=== PATIENT | female | born 1980 | race Two or more races ===

== ENCOUNTER 2019-10-08 12:07 | Inpatient (IN) | payer OTHER ==
[~2019-10-08] VITALS: Ht 162.6 cm; Wt 83.0 kg
[2019-10-08] MEDS ORDERED: METF-440 PO (14:21)
[2019-10-08] MEDS ORDERED: NORE0.353 PO (14:21)
[2019-10-08 14:45] VITALS: BP 119/86
--- NOTE | 2019-10-08 14:45 | NUR ---
RECEIVED PATIENT DIRECT ADMIT FROM [facility] VIA [facility] TRANSPORTED BY echo technologist. PATIENT IS A/OX4, ABLE TO MAKE NEEDS KNOWN, AMBULATORY, TRANSFERRED SELF FROM [facility] TO BED. DX OF CHOLECYSTITIS. ICELANDIC SPEAKING, UNDERSTANDS LITTLE CHILEAN. NOT IN ANY FORM OF DISTRESS. TOLERATING ROOM AIR SATTING 96%. NO SOB. DENIED ANY PAIN OR DISCOMFORT AT THIS MOMENT. IV ACCESS ON LEFT AC GUAGE 18 INTACT AND PATENT. REFUSED SKIN ASSESSMENT, PATIENT STATED THAT SHE DOESNT HAVE ANY WOUNDS. FAMILY AT BEDSIDE. BELONGINGS CHECKED BY CYDNEY GREEN. ORIENTED PATIENT TO ROOM, TAUGHT HOW TO USE THE CALL LIGHT AND INSTRUCTED TO CALL FOR ASSISTANCE. SAFETY MEASURES IN PLACE. BED IN LOW/LOCKED PSOITION, SIDERAILS UPX2, CALL LIGHT IN REACH. WILL CONTINUE TO MONIOTR ACCORDINGLY. PAGED BONIFACIO QUINTANA FOR ADMITTING ORDERS
--- NOTE | 2019-10-08 15:33 | NUR ---
[facility] SWAB COLLECTED, CALLED LAB FOR CARVER HAND
[2019-10-08] MEDS ORDERED: ONDANSETRON HCL/PF 4 MG/2 ML VIAL IVP PRN (16:30)
[2019-10-08] MEDS ORDERED: ZOLPIDEM TARTRATE 5 MG TABLET PO PRN (16:30)
[2019-10-08] MEDS ORDERED: MAGNESIUM HYDROXIDE 30 ML UDC PO PRN (16:30)
[2019-10-08] MEDS ORDERED: MAG HYDROX/AL HYDROX/SIMETH 30 ML UDC PO PRN (16:30)
[2019-10-08] MEDS ORDERED: Z GUARD REMEDY 2 OZ OINT TP PRN (16:30)
[2019-10-08] MEDS ORDERED: MORPHINE SULFATE INJ 2 MG/ML DISP.SYRIN IV PRN (16:30)
[2019-10-08] MEDS ORDERED: DEXTROSE 50%-WATER 50 ML DISP.SYRIN IV PRN (16:30)
[2019-10-08] MEDS: IV NS 0.9% 1,000 ML IV PRN (17:02)
[2019-10-08] MEDS: BLOOD SUGAR DIAGNOSTIC 1 EACH STRIP IN SCH ×2 (17:15→21:19)
--- NOTE | 2019-10-08 17:16 | NUR ---
RN NOTES BONIFACIO QUINTANA DNP AT BEDSIDE DISCUSSED POC TO PATIENT.
[2019-10-08 17:19] LABS: CALCIUM, SERUM 8.5 mg/dL (8.5-10.1); CREATININE 0.7 mg/dL (0.6-1.3); POTASSIUM 3.7 mmol/L (3.5-5.1)
[2019-10-08] MEDS: ZOSYN IVPB 3.375 G in IV D5W 50ml IV ONE ×2 (18:06→18:11)
--- NOTE | 2019-10-08 19:03 | NUR ---
RN CLOSING NOTES PATIENT IN STABLE CONDITION. ALL NEEDS ATTENDED AND PROVIDED. ALL DUE MEDICATION GIVEN ORDERED. KEPT PATIENT SAFE AND COMFORTABLE. BED IN LOW/LOCKED POSITION. SIDERAILS UPX2, CALL LIGHT IN REACH. ENDORSED TO NIGHT RN FOR RANGEL.
[2019-10-08 20:00] VITALS: BP 124/80
[2019-10-08] MEDS: INSULIN REGULAR, HUMAN 100 UNIT/ML 3 ML VIAL SQ PRN (21:20)
--- NOTE | 2019-10-08 21:20 | NUR ---
ms power press supervisor notes blood sugar checked done 81, no insuiln due at this time. no signs of hypo glycemia noted. will continue monitoring.
[2019-10-09] MEDS: PIPERACILLIN /TAZOBACTAM 3.375 G in IV D5W 100 ML IV SCH ×3 (00:43→15:00)
[2019-10-09] MEDS: BLOOD SUGAR DIAGNOSTIC 1 EACH STRIP IN SCH ×4 (05:46→22:56)
[2019-10-09] MEDS: INSULIN REGULAR, HUMAN 100 UNIT/ML 3 ML VIAL SQ PRN ×3 (05:50→17:04)
[2019-10-09 06:32] LABS: BASOPHILS % (AUTO) 0.4 % (0.0-2.0); EOSINOPHILS % (AUTO) 4.8 % (0.0-6.0); HEMATOCRIT 34 % (33-45); HEMOGLOBIN 11.2 g/dL (11.5-14.8); LYMPHOCYTES # (AUTO) 1.6 /CMM (0.8-4.8); LYMPHOCYTES % (AUTO) 26.2 % (20.0-44.0); MEAN CORPUSCULAR HGB CONC 33 g/dl (31.0-36.0); MEAN CORPUSCULAR VOLUME 85 fL (82-100); MONOCYTES # (AUTO) 0.4 /CMM (0.1-1.30); MONOCYTES % (AUTO) 5.9 % (2.0-12.0); NEUTROPHILS # (AUTO) 3.8 /CMM (1.8-8.9); NEUTROPHILS % (AUTO) 62.7 % (43.0-81.0); PLATELET COUNT (AUTO) 233 /CMM (150-450); RED BLOOD CELL COUNT(AUTO) 3.99 MIL/uL (4.0-5.2)
--- NOTE | 2019-10-09 06:52 | NUR ---
MS LANDCARE OFFICER CLOSING NOTES PT AWAKE AND ALERT WATCHING TV AT THIS TIME WITH IVF NS AT 75ML/HR STILL INFUSING ON HER LEFT AC. PATENT AND INTACT. DENIES ANY PAIN OR ANY DISCOMFORT. STABLE [place] THE NIGHT . BLOOD SUGAR CHECKED DONE 105, NO INSULIN DUE AT THIS TIME. NO SIGNS OF HYPO GLYCEMIA NOTED. PT SIGNED THE CONSENT FOR HIDA SCAN. WILL ENDORSE TO AM NURSE FOR CONTINUITY OF CARE. PLACE CALL LIGHT AT REACH.
[2019-10-09 07:00] LABS: ALBUMIN 3.2 g/dL (3.4-5.0); BILIRUBIN,TOTAL 0.4 mg/dL (0.2-1.0); CALCIUM, SERUM 8.6 mg/dL (8.5-10.1); CREATININE 0.7 mg/dL (0.6-1.3); MAGNESIUM 1.8 mg/dL (1.8-2.4); PHOSPHORUS 4.5 mg/dL (2.5-4.9); POTASSIUM 3.7 mmol/L (3.5-5.1); TOTAL PROTEIN, SERUM 6.6 g/dL (6.4-8.2)
--- NOTE | 2019-10-09 07:09 | NUR ---
RN OPENING NOTE PT WAS RECEIVED IN BED IN LOWEST AND LOCKED POSITION WITH SIDE RAILS UP X2, A/O X4 BREATHING EVEN AND UNLABORED AMHARIC SPEAKING, PT NOTED TO BE AMBULATORY, CURRENTLY NPO, AWAITING FOR HIDA SCAN, SAFETY PRECAUTIONS IN PLACE, CALL LIGHT IN REACH, WILL MONITOR ACCORDINGLY
[2019-10-09 08:00] VITALS: BP 128/85
[2019-10-09] MEDS: PANTOPRAZOLE 40 MG VIAL IV SCH (08:07)
--- NOTE | 2019-10-09 09:19 | NUR ---
RN NOTE PT TAKEN FOR HIDA SCAN AT THIS TIME, CONSENT SIGNED.
--- NOTE | 2019-10-09 10:57 | NUR ---
RN NOTE PT BROUGHT BACK FROM HIDA SCAN AT THIS TIME
--- NOTE | 2019-10-09 11:41 | NUR ---
RN NOTE PT BLOOD SUGAR NOTED TO BE 111 AT THIS TIME, NO INSULIN REQUIRED PER S/S, WILL CONTINUE TO MONITOR
--- NOTE | 2019-10-09 12:00 | NUR ---
RN NOTE WANT AD RECEIVER LUIS CASTRO INFORMED OF HIDA SCAN RESULTS BEING UNREMARKABLE AND PT WANTING TO EAT, ONLY ORDER RECEIVED WERE FOR STAT HEPATITIS PANEL AND HEP B SURFACE ANTIGEN. WILL IMPLEMENT AND CARRY OUT
[2019-10-09 15:19] LABS: BILIRUBIN,DIRECT 0.1 mg/dL (0.0-0.2); BILIRUBIN,TOTAL 0.4 mg/dL (0.2-1.0)
--- NOTE | 2019-10-09 15:39 | NUR ---
RN NOTE SIZE MAKER LUIS CASTRO INFORMED OF BILIRUBIN RESULTS, ORDER GIVEN TO START PT ON CLEARS FOR NOW, WILL IMPLEMENT AND CARRYOUT
[2019-10-09 16:00] VITALS: BP 144/90
--- NOTE | 2019-10-09 18:12 | NUR ---
RN CLOSING NOTE PT IN BED IN LOWEST AND LOCKED POSITION WITH SIDE RAILS UP X2, A/O X4 BREATHING EVEN AND UNLABOREWITH NO DISTRESS OR PAIN AT THIS TIME, CURRENTLY ON CLEAR LIQUIDS, ALL NEEDS ATTENDED TO THROUGHOUT SHIFT, SAFETY PRECAUTIONS IN PLACE, CALL LIGHT IN REACH, WILL ENDORSE TO NIGHT RN FOR RANGEL.
--- NOTE | 2019-10-09 18:59 | NUR ---
Patient lives at home with her spouse and family in [facility]. She is a homemaker, ambulatory and independent with adl's. Pcp is Dr. Philippe Maravilla. Spouse will provide ride when discharge. Addendum: 10/09/19 at 1859 by FABIAN IRENE RN Amended: Links added.
--- NOTE | 2019-10-09 19:10 | NUR ---
MS RN NOTE RECEIVED PT IN BED AWAKE AND ABLE TO MAKE NEEDS KNOWN. PT A/O X3, SLOVAK SPEAKING. RESPIRATIONS EVEN AND UNLABORED WITH NO S/S OF ACUTE DISTRESS OR SOB NOTED. NO COMPLAINTS OF PAIN AT THIS TIME. PT WITH LAC #18G PATENT AND INTACT INFUSING NS@ 75ML/HR. SAFETY MEASURES IN PLACE WITH BED IN LOWEST LOCKED POSITION WITH SIDE RAILS UP X2. CALL LIGHT WITHIN REACH. WILL CONTINUE TO MONITOR.
[2019-10-09 20:00] VITALS: BP 140/88
[2019-10-09] MEDS: ACETAMINOPHEN 325 MG TABLET PO PRN (20:28)
[2019-10-09] MEDS: IV NS 0.9% 1,000 ML IV PRN (23:32)
[2019-10-10] MEDS: PIPERACILLIN /TAZOBACTAM 3.375 G in IV D5W 100 ML IV SCH ×2 (00:13→08:31)
[2019-10-10 07:26] LABS: ALBUMIN 3.4 g/dL (3.4-5.0); BILIRUBIN,DIRECT 0.1 mg/dL (0.0-0.2); BILIRUBIN,TOTAL 0.4 mg/dL (0.2-1.0); TOTAL PROTEIN, SERUM 7.1 g/dL (6.4-8.2)
[2019-10-10] MEDS: BLOOD SUGAR DIAGNOSTIC 1 EACH STRIP IN SCH ×2 (07:35→12:00)
--- NOTE | 2019-10-10 07:45 | NUR ---
MS RN NOTE PT IN BED AWAKE AND ABLE TO MAKE NEEDS KNOWN. PT A/O X3, MALTESE SPEAKING. RESPIRATIONS EVEN AND UNLABORED WITH NO S/S OF ACUTE DISTRESS OR SOB NOTED THROUGHOUT SHIFT. NO COMPLAINTS OF PAIN AT THIS TIME. PT WITH LAC #18G PATENT AND INTACT INFUSING NS@ 75ML/HR. SAFETY MEASURES IN PLACE WITH BED IN LOWEST LOCKED POSITION WITH SIDE RAILS UP X2. CALL LIGHT WITHIN REACH. WILL ENDORSE TO ONCOMING NURSE FOR RANGEL.
[2019-10-10 07:54] VITALS: BP 148/83
--- NOTE | 2019-10-10 08:00 | NUR ---
RN NOTES RECEIVED PATIENT IN THE BED A/O X4 DUTCH SPEAKER FEMALE. PATIENT WAS COMPLAINING OF PAIN RIGHT FLANK AREA PAIN 5/10, ADMINISTERED TYLENOL, V/S STABLE, ADMINISTERED SCHEDULED MEDICATION. INFUSING NS AT 75 ML/HR INTACT ON LEFT AC AREA. PATIENT AMBULATORY USING BATHROOM. NEEDS ATTENDED AND ANTICIPATED, SAFETY PRECAUTION MAINTAINED ALL THE TIME.
[2019-10-10] MEDS: PANTOPRAZOLE 40 MG VIAL IV SCH (08:31)
[2019-10-10] MEDS: ACETAMINOPHEN 325 MG TABLET PO PRN (08:39)
--- NOTE | 2019-10-10 08:39 | NUR ---
rn notes administered Tylenol 650 mg po prn for right flank area pain 5/10 per patient request.
[2019-10-10 08:51] VITALS: BP 148/83
--- NOTE | 2019-10-10 10:00 | NUR ---
RN NOTES PATIENT GOING TO DISCHARGE HOME SELF CARE PER HOSPITALIST DNP MARIANO ORDER. PATIENT WILL FOLLOW PRIMARY MD, AND OBG.
[2019-10-10] MEDS ORDERED: AMOX-430 PO (10:17)
--- NOTE | 2019-10-10 13:41 | NUR ---
MANPOWER DEVELOPMENT SPECIALIST MANAGER NOTES PATIENT DISCHARGE AT THIS TIME GOING HOME SELF CARE. PATIENT A/O X4 STABLE, REFUSED PAIN, V/S STABLE, NO ACUTE RESPIRATORY DISTRESS. MED RECONCILIATION AND DISCHARGE ORDER REVIEWED AND EXPLAINED TO PATIENT AND . PATIENT VERBALIZED UNDERSTANDING. BELONGING WITH THE PATIENT, PRESCRIPTION HANDED TO THE PATIENT WITH OTHER PAPERWORK AND EXPLAINED. REMOVED IV ACCESS. PATIENT WILL FOLLOW PRIMARY MD, AND OBG BECAUSE OF HAS BABY THREE MONTHS AGO. ESCORTED PATIENT TO THE LOBBY FOR SAFETY . PATIENT STEAM BLOCKER BY NAME RAUL PHONE #[phone].
== END 2019-10-10 13:30 | disposition home or self-care (01) ==
LOC: MED 14:15
PROVIDERS: ADMIT Hospitalist; ATTEND Hospitalist
DX: K80.00 Calculus of gallbladder with acute cholecystitis without obstruction (principal); K76.0 Fatty (change of) liver, not elsewhere classified; E11.9 Type 2 diabetes mellitus without complications; E66.9 Obesity, unspecified; Z68.31 Body mass index [BMI] 31.0-31.9, adult; Z79.84 Long term (current) use of oral hypoglycemic drugs
CPT/HCPCS: 36415; 78226; 80048-TC; 80053-TC; 80061-TC; 80074; 80076-TC; 82150-TC; 82247-TC; 82248-TC; 82962-TC; 83690-TC; 83735-TC; 84100-TC; 84703-TC; 85025-TC; 85730-TC; 86706; 87081-TC; A9537; C9113; G0378; J1815; J2270; J2405; J2543; J7030; J7060